=== PATIENT | female | born 1975 | race Caucasian/White ===

== ENCOUNTER → 2019-04-30 | Outpatient (CLI) | payer OTHER ==
[~2019-04-30] MED LIST: HYDROCODONE-AP1 EAC6 PO; PRENATAL; ZANTAC; Zyrtec PO
== END ==
LOC: CAT 09:07
DX: Z13.6 Encounter for screening for cardiovascular disorders (principal); E78.00 Pure hypercholesterolemia, unspecified; I25.10 Atherosclerotic heart disease of native coronary artery without angina pectoris